=== PATIENT | female | born 1995 | race American Indian/Alaskan Native ===

== ENCOUNTER 2021-11-20 06:07 | Emergency (ER) | payer SELFPAY ==
[2021-11-20 07:22] VITALS: BP 116/72
== END 2021-11-22 10:06 | disposition left against medical advice (07) ==
LOC: ED 06:07
DX: S50.311A Abrasion of right elbow, initial encounter (principal); Z53.21 Procedure and treatment not carried out due to patient leaving prior to being seen by health care provider; Y08.89XA Assault by other specified means, initial encounter; Y93.89 Activity, other specified; Y92.89 Other specified places as the place of occurrence of the external cause; Y99.8 Other external cause status